=== PATIENT | male | born 1935 | race Caucasian/White ===

== ENCOUNTER 2019-09-11 16:20 | Emergency (ER) | payer OTHER ==
[~2019-09-11] VITALS: Ht 182.9 cm; Wt 93.9 kg
[2019-09-11] MEDS ORDERED: COZAAR 25 MG TA25 M2 PO (16:31)
[2019-09-11] MEDS ORDERED: LORCET 5-325 M1 EACH PO (16:31)
[2019-09-11] MEDS ORDERED: FLOMAX0.4 MG PO (16:32)
[2019-09-11] MEDS ORDERED: LANOXIN125 MCG PO (16:33)
[2019-09-11] MEDS ORDERED: LIPITOR 10 MG10 M1 PO (16:33)
[2019-09-11] MEDS ORDERED: JANTOVEN1 MG PO (16:33)
[2019-09-11] MEDS ORDERED: TYLENOL PM EX-1 EACH PO (16:34)
[2019-09-11] MEDS ORDERED: AMITRIPTYLINE H25 M3 PO (16:34)
[2019-09-11] MEDS ORDERED: PROSCAR 5MG TABL5 MG PO (16:34)
[2019-09-11 17:07] LABS: HEMATOCRIT 47.3 % (42.0-52.0); HEMOGLOBIN 15.6 gm/dL (14.0-18.0); MCH 31.5 pg (26.0-34.0); MCHC 33.1 g/dL (28.0-37.0); MCV 95.1 fL (80.0-100.0); NUCLEATED RBCS 0 /100WBC; PLATELET COUNT* 221 thou/uL (150-400); RBC 4.97 mil/uL (4.50-6.00); RDW-CV 14.6 % (10.5-14.5); WBC 10.5 thou/uL (4.0-11.0)
[2019-09-11 17:11] LABS: CALCIUM 9.5 mg/dL (8.5-10.1); CREATININE 1.4 mg/dL (0.6-1.3); POTASSIUM 4.2 mmol/L (3.5-5.1)
[2019-09-11 17:13] LABS: INR 1.6; PROTIME 16.4 Seconds (9.20-11.50)
[2019-09-11 17:16] LABS: ALBUMIN 3.9 g/dL (3.4-5.0); TOTAL BILIRUBIN 0.5 mg/dL (<0.1-1.0); TOTAL PROTEIN 6.9 g/dL (6.4-8.2)
[2019-09-11 18:04] LABS: ABSOLUTE BASOPHILS 0.1 thou/uL (0.0-0.2); ABSOLUTE LYMPHOCYTES 0.6 thou/uL (0.8-5.3); ABSOLUTE MONOCYTES 0.4 thou/uL (0.0-1.2); ABSOLUTE NEUTROPHILS 9.3 thou/uL (1.6-8.1); PLATELET ESTIMATE ADEQUATE
[2019-09-11] MEDS ORDERED: CENTANY30 GM TOP (19:36)
[2019-09-11 19:52] VITALS: BP 125/81
== END 2019-09-11 19:52 | disposition home or self-care (01) ==
LOC: M.ERS 16:20
PROVIDERS: Nurse Practitioner Family
DX: S01.21XA Laceration without foreign body of nose, initial encounter (principal); S80.01XA Contusion of right knee, initial encounter; S80.02XA Contusion of left knee, initial encounter; M25.552 Pain in left hip; M79.602 Pain in left arm; S09.8XXA Other specified injuries of head, initial encounter; I10 Essential (primary) hypertension; I48.91 Unspecified atrial fibrillation; W01.0XXA Fall on same level from slipping, tripping and stumbling without subsequent striking against object, initial encounter; Y93.89 Activity, other specified; Y92.89 Other specified places as the place of occurrence of the external cause; Y99.8 Other external cause status

== ENCOUNTER 2019-10-30 16:52 | Inpatient (IN) | payer OTHER ==
[~2019-10-30] VITALS: Ht 182.9 cm; Wt 94.0 kg
[~2019-10-30 16:52] MED LIST: AMITRIPTYLINE H25 M3 PO; CENTANY30 GM TOP; COZAAR 25 MG TA25 M2 PO; FLOMAX0.4 MG PO; JANTOVEN1 MG PO; LANOXIN125 MCG PO; LIPITOR 10 MG10 M1 PO; LORCET 5-325 M1 EACH PO; PROSCAR 5MG TABL5 MG PO; TYLENOL PM EX-1 EACH PO
[2019-10-30 16:53] VITALS: BP 128/83
[2019-10-30] MEDS ORDERED: RAYOS5 MG PO (17:07)
[2019-10-30] MEDS ORDERED: NEURONTIN100 MG PO (17:07)
[2019-10-30] MEDS ORDERED: VITAMIN D400 UNIT PO (17:08)
[2019-10-30 17:33] LABS: HEMATOCRIT 42.4 % (42.0-52.0); MCH 30.8 pg (26.0-34.0); MCV 93.3 fL (80.0-100.0); MPV 7.6 fl. (7.2-11.1); NUCLEATED RBCS 0 /100WBC; PLATELET COUNT* 207 thou/uL (150-400); RBC 4.54 mil/uL (4.50-6.00); WBC 12.8 thou/uL (4.0-11.0)
[2019-10-30 17:41] LABS: URINE BILIRUBIN NEGATIVE (Negative); URINE BLOOD 2+ (Negative); URINE CLARITY CLEAR; URINE COLOR YELLOW; URINE GLUCOSE-RANDOM NEGATIVE (Negative); URINE KETONES NEGATIVE (Negative); URINE LEUKOCYTES-REFLEX NEGATIVE (Negative); URINE NITRITE-REFLEX NEGATIVE (Negative); URINE PROTEIN NEGATIVE (Negative)
[2019-10-30 17:44] LABS: INFLUENZA A ANTIGEN Positive (Negative); INFLUENZA B ANTIGEN Negative (Negative)
[2019-10-30 17:44] LABS: CALCIUM 8.6 mg/dL (8.5-10.1); CREATININE 1.2 mg/dL (0.6-1.3); POTASSIUM 3.6 mmol/L (3.5-5.1)
[2019-10-30 17:49] LABS: BACTERIA-REFLEX None Seen /HPF (None Seen); CASTS None Seen /LPF (None Seen); CRYSTALS None Seen /LPF (None Seen); MUCUS None Seen strn/LPF (None Seen); SQUAMOUS NONE SEEN /LPF (0-3); URINE RBC 3-10 Few /HPF (0-2); URINE WBC-REFLEX None Seen /HPF (0-5)
[2019-10-30 17:58] LABS: ALBUMIN 3.5 g/dL (3.4-5.0); CK-MB MASS 0.5 ng/mL (<0.5-3.6); TOTAL BILIRUBIN 0.5 mg/dL (<0.1-1.0); TOTAL PROTEIN 6.7 g/dL (6.4-8.2)
[2019-10-30 18:01] LABS: APTT 39.5 Seconds (25.0-31.3); INR 2.7; PROTIME 26.4 Seconds (9.20-11.50)
[2019-10-30 18:03] LABS: ABSOLUTE LYMPHOCYTES 0.5 thou/uL (0.8-5.3); ABSOLUTE MONOCYTES 0.5 thou/uL (0.0-1.2); ABSOLUTE NEUTROPHILS 11.8 thou/uL (1.6-8.1)
[2019-10-30 18:04] LABS: PLATELET ESTIMATE ADEQUATE
[2019-10-30 20:15] VITALS: BP 147/82
[2019-10-30 22:00] VITALS: BP 132/62
[2019-10-31] VITALS (8 sets, daily range): BP systolic 121–167; BP diastolic 51–81
[2019-10-31 05:48] LABS: ABSOLUTE BASOPHILS 0.1 thou/uL (0.0-0.2); ABSOLUTE EOSINOPHILS 0.1 thou/uL (0.0-0.7); ABSOLUTE LYMPHOCYTES 1.4 thou/uL (0.8-5.3); ABSOLUTE MONOCYTES 1.5 thou/uL (0.0-1.2); ABSOLUTE NEUTROPHILS 8.4 thou/uL (1.6-8.1); BASOPHILS 0.5 %; EOSINOPHILS 0.7 %; HEMOGLOBIN 12.9 gm/dL (14.0-18.0); LYMPHOCYTES 12.1 %; MCH 30.8 pg (26.0-34.0); MCV 93.5 fL (80.0-100.0); MONOCYTES 13.1 %; MPV 7.6 fl. (7.2-11.1); NUCLEATED RBCS 0 /100WBC; PLATELET COUNT* 199 thou/uL (150-400); POLYS 73.6 %; RBC 4.17 mil/uL (4.50-6.00); RDW-CV 13.8 % (10.5-14.5); WBC 11.4 thou/uL (4.0-11.0)
[2019-10-31 06:00] LABS: CALCIUM 8.2 mg/dL (8.5-10.1); POTASSIUM 3.7 mmol/L (3.5-5.1); TOTAL BILIRUBIN 0.7 mg/dL (<0.1-1.0)
[2019-10-31 07:01] LABS: PROTIME 20.4 Seconds (9.20-11.50)
[2019-11-01 00:41] VITALS: BP 138/67
[2019-11-01 04:00] VITALS: BP 136/82
[2019-11-01 04:59] LABS: HEMATOCRIT 38.9 % (42.0-52.0); MCH 31.1 pg (26.0-34.0); MCHC 33.6 g/dL (28.0-37.0); MCV 92.7 fL (80.0-100.0); MPV 7.6 fl. (7.2-11.1); RBC 4.19 mil/uL (4.50-6.00); RDW-CV 14.2 % (10.5-14.5)
[2019-11-01 05:06] LABS: INR 1.5; PROTIME 15.1 Seconds (9.20-11.50)
[2019-11-01 08:00] VITALS: BP 160/70
[2019-11-01 12:16] VITALS: BP 122/69
--- NOTE | 2019-11-01 13:44 | NUR ---
[facility]KING [facility] [employer]
[2019-11-01 16:38] VITALS: BP 154/81
[2019-11-01 19:30] VITALS: BP 133/58
[2019-11-02] VITALS: BP 128/59
[2019-11-02 04:00] VITALS: BP 139/88
[2019-11-02 04:48] LABS: INR 1.7; PROTIME 17.4 Seconds (9.20-11.50)
--- NOTE | 2019-11-02 05:16 | NUR ---
PT SLEPT MOST OF SHIFT. ASSESSMENT DOCUMENTED. MEDS GIVEN PER E-MAR. IV PATENT. PAIN MEDS GIVEN PER E-MAR WITH RELIEF. PT INCONTINENT THROUGH SHIFT. FALL PRECAUTIONS IN PLACE. WILL CONTINUE WITH PLAN OF CARE.
[2019-11-02 08:00] VITALS: BP 142/77
--- NOTE | 2019-11-02 08:29 | EKG ---
[place] [address] ELECTROCARDIOGRAM REPORT Name: BRISA SALES Room: [address] ADM IN .R.#: [id number] Admission: 10/30/19 Attend Phys: Oliver Hoffman Discharge: Date of : 31 Report #: [id number] THIS REPORT FOR: //name// [facility] ED Test Date: 2019-10-30 Test Time: 16:59:43 Pat Name: BRISA SALES Department: Room: [facility] Gender: M Auto Damage Adjuster: : 1935 Requested By: Irineo Crowder Order Number: [id number] MD: Kenny Benjamin Measurements Intervals [place] Rate: 110 P: [place]: QRS: 50 QRSD: 89 T: 266 QT: 337 QTc: 456 Interpretive Statements Atrial fibrillation Repol abnrm, severe global ischemia (LM/MVD) No previous ECG available for comparison Electronically Signed On 11-02-2019 8:29:00 [facility] by Kenny Benjamin [email or web address] <ELECTRONICALLY SIGNED> By: Kenny Benjamin MD, [facility] 11/02/19 0829 [id number] Kenny Benjamin MD, FACC /EPI
[2019-11-02 11:46] VITALS: BP 126/56
--- NOTE | 2019-11-02 14:21 | NUR ---
Pt is A&O. Resides at home with his . Normally independent. Pt has a walker, but states that he doesn't normally use it. Pt and share household responsbilities. Hx of HH. No hx of SNF. Goal is home at dc. Per , Pt will need HH at [place]. Following.
[2019-11-02 16:43] VITALS: BP 132/81
[2019-11-02 20:30] VITALS: BP 158/86
[2019-11-03] VITALS: BP 127/73
[2019-11-03 04:09] VITALS: BP 125/92
--- NOTE | 2019-11-03 04:38 | NUR ---
PT SLEPT ON AND OFF THIS SHIFT. ASSESSMENT DOCUMENTED. MEDS GIVEN PER E-MAR. NEW IV STARTED THIS SHIFT. PAIN MEDS GIVEN PER E-MAR WITH RELIEF. FALL PRECAUTIONS IN PLACE. WILL CONTINUE WITH PLAN OF CARE.
[2019-11-03 04:48] LABS: PROTIME 29.9 Seconds (9.20-11.50)
--- NOTE | 2019-11-03 07:20 | NUR ---
CHANGE OF SHIFT BEDSIDE REPORT GIVEN PATIENT SEEN AT BEDSIDE, IN BED ASLEEP ASSUMMED PATIENT CARE BED ALARM SET
[2019-11-03 08:00] VITALS: BP 160/76
[2019-11-03 11:34] VITALS: BP 158/72
[2019-11-03 14:00] VITALS: BP 152/72
--- NOTE | 2019-11-03 14:24 | NUR ---
Spoke with , anticipate that Pt will be ready to dc to home tomorrow with HH. Faxed initial referral to [facility] , orders will need to be faxed tomorrow to [phone]
[2019-11-03 20:00] VITALS: BP 152/72
[2019-11-04] VITALS: BP 120/85
[2019-11-04 03:32] LABS: PROTIME 47.5 Seconds (9.20-11.50)
[2019-11-04 04:00] VITALS: BP 128/77
[2019-11-04 04:20] LABS: INR 4.9
[2019-11-04 05:56] LABS: ABSOLUTE EOSINOPHILS 0.1 thou/uL (0.0-0.7); ABSOLUTE LYMPHOCYTES 2.1 thou/uL (0.8-5.3); ABSOLUTE MONOCYTES 1.2 thou/uL (0.0-1.2); ABSOLUTE NEUTROPHILS 3.8 thou/uL (1.6-8.1); BASOPHILS 0.6 %; EOSINOPHILS 1.8 %; HEMATOCRIT 39.1 % (42.0-52.0); LYMPHOCYTES 28.9 %; MCH 30.7 pg (26.0-34.0); MCHC 33.4 g/dL (28.0-37.0); MCV 91.9 fL (80.0-100.0); MONOCYTES 16.1 %; MPV 7.8 fl. (7.2-11.1); NUCLEATED RBCS 0 /100WBC; PLATELET COUNT* 262 thou/uL (150-400); POLYS 52.6 %; RBC 4.25 mil/uL (4.50-6.00); RDW-CV 13.7 % (10.5-14.5); WBC 7.2 thou/uL (4.0-11.0)
[2019-11-04 06:02] LABS: CALCIUM 8.3 mg/dL (8.5-10.1); POTASSIUM 3.1 mmol/L (3.5-5.1)
--- NOTE | 2019-11-04 06:41 | NUR ---
ASSUMED CARE OF PT AFTER REPORT AT 1930. PT A&OX2. FORGETFUL AND IMPULSIVE. VSS. PHYSICAL ASSESSMENT COMPLETED AND CHARTED. PT ON RA. PT TRACING AFIB ON TELE. HR TO 130'S WHEN UP. PT UPSTANDBY TO RESTROOM WITH WALKER. PT DENIES ANY PAIN OR DISCOMFORT. MAINTAINED ON ISOLATION PRECAUTION FOR FLU. PT HAS A CRITICAL INR- PROVIDER MADE AWARE. PT ABLE TO SLEEP WELL ON BED. FALL PRECUATIONS IN PLACE.
[2019-11-04 08:00] VITALS: BP 135/55
[2019-11-04 11:15] VITALS: BP 171/83
[2019-11-04] MEDS ORDERED: LEVAQUIN 750 M750 MG PO (13:04)
[2019-11-04] MEDS ORDERED: LASIX 40 MG TAB40 MG PO (13:04)
[2019-11-04 14:54] VITALS: BP 171/83
[2019-11-04 15:09] VITALS: BP 171/83
== END 2019-11-04 15:50 | disposition home health service (06) | DRG 871 ==
LOC: M.ERS 16:52 → M.2W 18:14 → M.TBA-ER 18:14 → M.2W 20:23
PROVIDERS: Family Medicine; ADMIT Family Medicine
DX: A41.9 Sepsis, unspecified organism (principal); J10.08 Influenza due to other identified influenza virus with other specified pneumonia; J15.9 Unspecified bacterial pneumonia; I48.20 Chronic atrial fibrillation, unspecified; D68.59 Other primary thrombophilia; I24.8 Other forms of acute ischemic heart disease; R65.20 Severe sepsis without septic shock; E78.5 Hyperlipidemia, unspecified; N40.0 Benign prostatic hyperplasia without lower urinary tract symptoms; Z96.643 Presence of artificial hip joint, bilateral; I10 Essential (primary) hypertension; Z79.899 Other long term (current) drug therapy; Z79.01 Long term (current) use of anticoagulants; Z91.81 History of falling; Z28.21 Immunization not carried out because of patient refusal

== ENCOUNTER → 2020-04-28 | Outpatient (CLI) | payer MEDICARE ==
[~2020-04-28] MED LIST changes: +LASIX 40 MG TAB40 MG PO; +LEVAQUIN 750 M750 MG PO; +NEURONTIN100 MG PO; +NORCO 5-325 TA1 EAC1 PO; +RAYOS5 MG PO; +VITAMIN D400 UNIT PO
--- NOTE | 2020-05-12 15:40 | PAINCON ---
[address] [address] PAIN MANAGEMENT CONSULTATION Name: MÓNICABRISA Valeri Room: [facility]#: [id number] Admission: 04/28/20 Attend Phys: Marti Saba MD Discharge: Date of : 33 Report #: [id number] THIS REPORT FOR: //name// cc: Gerardo Martinez MD, Tuongvan T. MD ~ THIS REPORT FOR: //name// CC: Marti Martinez MD DATE OF SERVICE: 04/28/2020 CHIEF COMPLAINT: Low back and left hip pain. HISTORY: The patient is an 85-year-old gentleman who has been referred to the pain clinic for evaluation of pain involving his left foot, left ankle, and left hip. He states that he does note some numbness in his feet. He was seen by an orthopedic doctor in regards to his hip pain. The orthopedic surgeon did not feel that the pain was from the hip. He states that it was most likely coming from his back. He has experienced some electrical shooting pains. He feels that on the left side, there is a buzzing sensation and discomfort in his big toe. He complains of some difficulty lifting his left leg when walking. Describes that the pain sometimes goes down the back of his hip and even down into his lower leg and foot. He rates his pain as a 9/10 today. ALLERGIES: No known drug allergies. CURRENT MEDICATIONS: Lipitor 10 mg, Proscar 5 mg, Neurontin 300 mg, hydrocodone 5/325 one p.o. b.i.d., Cozaar 25 mg, prednisone 5 mg b.i.d., Flomax 0.4 mg, and warfarin 1 mg Saturday, Saturday, , and Saturday. PAST MEDICAL HISTORY: Bilateral hip replacements, cochlear ear implant, hypertension, and atrial fibrillation. PAST SURGICAL HISTORY: Bilateral hip replacements in 1994 and cochlear ear implant in 2019. SOCIAL HISTORY: Retired 15 years ago. REVIEW OF SYSTEMS: Generally good health, fatigue, wears glasses, blurred vision, hearing loss, heart trouble, swelling of feet and ankles, painful bowel movements, abdominal pain, frequent urination, joint pain, joint stiffness or swelling, weakness of muscles or joints, muscle pain, cramping, back pain, difficulty walking, lightheadedness, dizziness, and numbness [place] [address] PAIN MANAGEMENT CONSULTATION Name: BRISA SALES Valeri Room: [facility]#: [id number] Admission: 04/28/20 Attend Phys: Marti Saba MD Discharge: Date of : 33 Report #: [id number] LABORATORY DATA: CT of the cervical spine on 09/11/2019. Impression, degenerative disk disease without acute fracture or subluxation. Reason neck pain after a fall. PAIN CLINIC ASSESSMENT/PQRS: 1. 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 He is not being treated for rheumatoid arthritis. 2. Height 6 feet 0, weight 190 pounds. 3. Vital signs: Blood pressure 125/66, heart rate 102, respiratory rate 16, room air saturation 97%. 4. Pain intensity is 9/10. 5. Fall history: The patient has not fallen in the last month. 6. Blood thinner. The patient has used a warfarin medication, Saturday, Saturday, , and Fridays 1 mg. 7. History of hypertension. The patient is being treated for hypertension. 8. Opioids greater than 6 weeks. The patient is receiving medication from his primary. 9. Risk assessment tool, low for opioid use. 10. Functional assessment tool reviewed. 11. Recreational drug use. The patient denies. 12. Tobacco: The patient does not smoke. 13. Alcohol. The patient denies frequent use of alcoholic beverages. PHYSICAL EXAMINATION: GENERAL: The patient is a well-developed, well-nourished white male. Appears his stated age of 85 years. The patient is alert and oriented x 3. Affect is appropriate. Speech is appropriate. HEENT: Normocephalic, atraumatic. Extraocular eye muscles intact. Sclerae nonicteric. Mucous membranes moist. HEART: Heart rate regular. RESPIRATORY: No shortness of breath, no cough. GASTROINTESTINAL: Unremarkable. MUSCULOSKELETAL: Upper extremity muscle strength judged to be 5-/5 for the major muscle groups in the upper extremity. Lower extremity, the patient has some pain and discomfort in his left hip. Has complained of pain that radiates down the hip into the left foot and does complain of some discomfort in his great toe. Muscle strength judged to be 4+ in the muscles in the lower extremity. He feels that there is some decreased sensation to light touch over the dorsum of his left foot. Gait is somewhat antalgic and unsteady using a cane. IMPRESSION: 1. Lumbar radiculopathy, low back area and the L4-L5 dermatomal distribution. 2. Bilateral hip replacements. 3. [place] [address] PAIN MANAGEMENT CONSULTATION Name: BRISA SALES Room: [facility] Dameon#: [id number] Admission: 04/28/20 Attend Phys: Marti Saba MD Discharge: Date of : 33 Report #: [id number] 4. Hypertension. 5. Atrial fibrillation. RECOMMENDATIONS: The patient is having pain in the back and down into his leg. We will proceed with an epidural steroid injection. The risks and benefits were discussed. The patient is taking warfarin type medication. He took his last dose one night prior to seeing us. He will stop taking the warfarin medication. He will return to the Pain Clinic, at which time we will consider an epidural steroid injection in the L4-L5 dermatomal distribution to see if it can help decrease some of the pain and discomfort he is experiencing. He will return to the Pain Clinic, at which time we will consider an injection. We would like to thank you for letting us participate in his care. We hope he continues to improve. <ELECTRONICALLY SIGNED> By: Marti Saba MD 05/12/20 1540 1422 [id number]. Richie Saba MD /[facility]
== END ==
LOC: M.PC 11:30
PROVIDERS: ATTEND Anesthesiology Pain Medicine
DX: M54.16 Radiculopathy, lumbar region (principal); M25.552 Pain in left hip; Z96.643 Presence of artificial hip joint, bilateral; Z96.21 Cochlear implant status; Z79.899 Other long term (current) drug therapy

== ENCOUNTER → 2020-05-05 | Outpatient (CLI) | payer MEDICARE | LOC: M.PC 02:28 | DX: M54.16 Radiculopathy, lumbar region (principal); M54.5 Low back pain; I48.91 Unspecified atrial fibrillation; I10 Essential (primary) hypertension; Z96.21 Cochlear implant status; Z98.890 Other specified postprocedural states ==

== ENCOUNTER → 2020-05-12 | Outpatient (CLI) | payer MEDICARE ==
--- NOTE | 2020-05-25 08:36 | PAINCON ---
[address] [address] PAIN MANAGEMENT CONSULTATION Name: BRISA SALES Valeri Room: [facility]#: [id number] Admission: 05/12/20 Attend Phys: Marti Saba MD Discharge: Date of : 33 Report #: [id number] THIS REPORT FOR: //name// cc: Gerardo Martinez MD, Tuongvan T. MD ~ THIS REPORT FOR: //name// CC: Marti Martinez DATE OF SERVICE: 05/12/2020 CHIEF COMPLAINT: Low back pain down to the left leg. HISTORY: The patient is an 85-year-old gentleman who has been seen in the Pain Clinic and returned today with complaints of pain and discomfort involving his low back, left leg, hip, foot and left great toe. He has had bilateral leg numbness. He has had bilateral knee pain. He has some medications helpful. He does note some weakness in his legs. Need some assistance to lift his left leg. She has some difficulty walking secondary to pain. He has been using hydrocodone and gabapentin. He has stopped taking his warfarin with the desire to undergo an epidural steroid injection today. ALLERGIES: No known drug allergies. CURRENT MEDICATIONS: Lipitor 10 mg, Proscar 5 mg, Neurontin 300 mg, hydrocodone 5/325 one p.o. b.i.d., Cozaar 25 mg, prednisone 5 mg b.i.d., Flomax 0.4 mg, and Coumadin 1 mg Saturday, Saturday and Saturday, has been stopped. PAIN CLINIC ASSESSMENT AND PQRS: 1. The patient has some osteoarthritic changes in his hip and has had bilateral hip replacement. He is not being treated for rheumatoid arthritis. 2. Height 6 feet 0 inches, weight 198 pounds, and BMI is 27.0. 3. Vital signs: Blood pressure 127/75, heart rate 102, respiratory rate 13, room air saturation 98%, and temperature 98.3. 4. Pain intensity 3-10 depending on activity. 5. Fall history: The patient has not fallen in the last 3 months. 6. Blood thinner. The patient has stopped taking his medication of warfarin. 7. Hypertension. The patient is being treated for hypertension. 8. Opioids greater than 6 weeks. The patient received medication from one source, his primary physician. 9. Functional assessment tool reviewed. 10. Recreational drug use. The patient denies. 11. Tobacco: The patient denies. 12. Alcohol. The patient denies frequent use [place] [address] PAIN MANAGEMENT CONSULTATION Name: BRISA SALES Valeri Room: [facility]#: [id number] Admission: 05/12/20 Attend Phys: Marti Saba MD Discharge: Date of : 33 Report #: [id number] PHYSICAL EXAMINATION: GENERAL: The patient is a well-developed, well-nourished white male. Appears his stated age of 85 years. He is alert and oriented x 3. His affect is appropriate. Speech is fluent. HEENT: Normocephalic, atraumatic. Extraocular eye muscles intact. The patient is wearing glasses. Has a mask in place. HEART: Regular rate. RESPIRATORY: No shortness of breath or cough. GASTROINTESTINAL: Unremarkable. MUSCULOSKELETAL: Muscle strength judged to be 5-/5 for the major muscle groups in the upper extremity. Lower extremity, the patient has pain and discomfort in the left hip with pain that radiates down to the left hip, leg and down to his foot. He has some discomfort in his great toe as well. IMPRESSION: 1. L4-L5 muscle weakness. The patient has an antalgic gait. Notes some decreased sensation on the dorsum of his foot. The patient uses his hands to go from a sitting to a standing position. 2. Lumbar radiculopathy. 3. Low back area in the L4-L5 dermatomal distribution. 4. Bilateral hip replacement. 5. Cochlear ear implant. 6. Hypertension. 7. Atrial fibrillation. RECOMMENDATIONS: We discussed the risks and benefits of an epidural steroid injection with the patient. They include but are not limited to infection, worsening of pain, no improvement in pain, nerve damage, bleeding, and the patient elects to proceed. We discussed the problems with COVID-19. We explained to the patient that if injections during this time may make things a bit more problematic should he become infected. Steroids can decrease one's immunity. He elects to proceed. PROCEDURE NOTE: The patient was taken to the procedure area. He was then assisted in getting on the examination table. His back was sterilely prepped with a Betadine solution. A 0.25% bupivacaine was infiltrated at the L4-L5 interspace. There was no CSF, heme or paresthesia. Total of 80 mg Depo-Medrol, 40 mg triamcinolone and 2 mL of 0.25% bupivacaine was injected. The patient tolerated the procedure well. There were no complications. He remained in the Pain Clinic for an appropriate amount of time. He will follow up in the [place] [address] PAIN MANAGEMENT CONSULTATION Name: BRISA SALES Room: [facility]#: [id number] Admission: 05/12/20 Attend Phys: Marti Saba MD Discharge: Date of : 33 Report #: [id number] We would like to thank you for letting us participate in his care. We hope he continues to improve. <ELECTRONICALLY SIGNED> By: Marti Saba MD 05/25/20 0836 1002 1607N. Richie Saba MD /nt
== END | disposition home or self-care (01) ==
LOC: M.PC 04:26
PROVIDERS: ATTEND Anesthesiology Pain Medicine
DX: M54.16 Radiculopathy, lumbar region (principal); G89.29 Other chronic pain; I48.91 Unspecified atrial fibrillation; I10 Essential (primary) hypertension; Z98.890 Other specified postprocedural states; Z79.899 Other long term (current) drug therapy; Z96.643 Presence of artificial hip joint, bilateral; Z79.01 Long term (current) use of anticoagulants

== ENCOUNTER → 2020-07-07 | Outpatient (CLI) | payer MEDICARE ==
[~2020-07-07] MED LIST changes: +HYDROCODON-ACE1 EAC7 PO
--- NOTE | 2020-07-28 08:40 | PAINCON ---
[address] [address] PAIN MANAGEMENT CONSULTATION Name: BRISA SALES Room: [facility]#: [id number] Admission: 07/07/20 Attend Phys: Marti Saba MD Discharge: Date of : 33 Report #: [id number] THIS REPORT FOR: //name// cc: Gerardo Martinez MD, Tuongvan T. MD ~ THIS REPORT FOR: //name// CC: Marti Martinez DATE OF SERVICE: 07/07/2020 CHIEF COMPLAINT: Continued leg pain. HISTORY: The patient is an 85-year-old gentleman, who is having pain involving his legs, ankle, feet and has had some problems with pain in his head. These have been ongoing for a number of years. He notes that the pain is bilateral. He has some sensation of pins and needles sensation with numbness down into his feet. He underwent an epidural injection. He noticed some benefit, but continues to have pain, which is still quite problematic. He has been using a cane to ambulate. He has returned today for evaluation and medication. ALLERGIES: No known drug allergies. CURRENT MEDICATIONS: Lipitor 10 mg, Proscar 5 mg, Neurontin 300 mg, hydrocodone 5/325 one p.o. b.i.d., Cozaar 25 mg, prednisone 5 mg b.i.d., Flomax 0.4 mg, and Coumadin 1 mg Saturday, Saturday, Fridays. PAIN CLINIC ASSESSMENT AND PQRS: 1. The patient has some osteoarthritic changes in his hip and has had bilateral hip replacements. He is not being treated for rheumatoid arthritis. 2. Height 6 feet 0, weight 195 pounds, BMI is 25. 3. Vital signs: Blood pressure 145/83, heart rate 107, respiratory rate 18, room air saturation 96%, and temperature 98.5. 4. Pain intensity 5/10. 5. Fall history: The patient has not fallen since we saw him last. He is walking with a cane. 6. Blood thinner. The patient continues to take warfarin. 7. Hypertension. The patient is being treated for hypertension. 8. Opioids greater than 6 weeks. The patient receives medication from one source, his primary physician. 9. Functional assessment tool reviewed. 10. Recreational drug use. The patient denies. 11. Tobacco: The patient denies. 12. Alcohol. The patient denies [place] [address] PAIN MANAGEMENT CONSULTATION Name: BRISA SALES Room: [facility]#: [id number] Admission: 07/07/20 Attend Phys: Marti Saba MD Discharge: Date of : 33 Report #: [id number] PHYSICAL EXAMINATION: GENERAL: The patient is a well-developed, well-nourished white male. Appears his stated age of 85 years. He is alert and oriented x 3. His affect is appropriate. Speech is fluent. HEENT: Normocephalic, atraumatic. Extraocular eye muscles intact. Sclerae are nonicteric. The patient is wearing glasses. His face is covered with a mask. HEART: Regular. RESPIRATORY: Denies shortness of breath or cough. GASTROINTESTINAL: Unremarkable. MUSCULOSKELETAL: Muscle strength in the upper extremity 4+/5 for the major muscle groups in the upper extremity. Lower extremity, the patient has pain and discomfort in his left hip and that pain radiates down to his left leg and foot. Notes some discomfort in the area of the great toe. IMPRESSION: L4-L5 muscle weakness. The patient walks with an antalgic gait. Notes some decreased sensation in the dorsum of his foot. The patient uses hands to go from a sitting to an ambulatory condition. 1. Lumbar radiculopathy. 2. Low back pain in the area of the L4-L5 dermatomal distribution. 3. Bilateral hip replacements. 4. Cochlear ear implant. 5. Hypertension. 6. History of atrial fibrillation. RECOMMENDATIONS: We discussed treatment options with the patient. At this juncture, we will continue on a conservative approach. The patient will take gabapentin 300 mg 1 p.o. b.i.d. He will also continue with hydrocodone 5/325 one p.o. q.i.d. The patient will monitor his problems with his left leg. He will call us if he has any problems with the hydrocodone medication. The patient's medication was sent to his pharmacy. <ELECTRONICALLY SIGNED> By: Marti Saba MD 07/28/20 0840 1838 [id number]. Richie Saba MD /[facility]ron
== END ==
LOC: M.PC 11:50
PROVIDERS: ATTEND Anesthesiology Pain Medicine
DX: M79.604 Pain in right leg (principal); M79.605 Pain in left leg; M54.16 Radiculopathy, lumbar region; I10 Essential (primary) hypertension; Z86.79 Personal history of other diseases of the circulatory system; Z96.641 Presence of right artificial hip joint; Z96.642 Presence of left artificial hip joint; Z96.21 Cochlear implant status; Z79.899 Other long term (current) drug therapy

== ENCOUNTER → 2020-09-06 | Outpatient (CLI) | payer OTHER ==
--- NOTE | ~2020-09-06 | PAINCON ---
[address] [address] PAIN MANAGEMENT CONSULTATION Name: MÓNICABRISA A Room: [facility]#: [id number] Admission: 09/06/20 Attend Phys: Marti Saba MD Discharge: Date of : 33 Report #: [id number] THIS REPORT FOR: //name// cc: Gerardo Martinez MD, Tuongvan T. MD ~ CC: Marti Martinez MD DATE OF SERVICE: 09/06/2020 CHIEF COMPLAINT: Left ankle, foot and right hand pain. HISTORY: The patient is an 85-year-old gentleman who has been followed in the Pain Clinic. He has pain involving a number of areas. He is complaining of pain involving his right hand, feet, ankle and legs. He has had pain for a number of years. Does complain of pins and needle sensation in his feet. He has undergone epidural steroid injections in the past. He is using a cane to ambulate. He is having some problems with his kidneys. He has been diagnosed with a kidney stone. Notes an enlarged prostate. Has some right-sided groin pain. There is some question about a fluid collection or infection involving his right hip. Rates his pain as a 3-4 while sitting and a 7-8 while up and ambulating. ALLERGIES: No known drug allergies. CURRENT MEDICATIONS: Lipitor 10 mg, Proscar 5 mg, Neurontin 300 mg, hydrocodone 5/325 one p.o. b.i.d., Cozaar 25 mg, prednisone 5 mg b.i.d., Flomax 0.4 mg, and Coumadin 1 mg Mondays, Wednesdays, and Fridays. PAIN CLINIC ASSESSMENT/PQRS: 1. The patient has some osteoarthritic changes in his hip. He has had bilateral hip replacements. He is not being treated for rheumatoid arthritis. 2. Height 6 feet 0, weight 195 pounds, BMI is 25. 3. Vital signs: Blood pressure is 114/64, heart rate 72, respiratory rate 18, room air saturation is 96%, temperature 96.8. 4. Pain intensity, 3-4/10 while sitting and 7-8/10 while ambulating. 5. Fall history: The patient has not fallen since we saw him last. 6. Blood thinner. The patient does take warfarin. 7. Hypertension. The patient is being treated for hypertension. 8. Opioids greater than 6 weeks. The patient received medication from his primary physician. 9. Risk assessment tool, low for opioid use. 10. Recreational drug use: The patient denies. 11. Tobacco: The patient denies. 12. Alcohol. The patient denies significant use [place] [address] PAIN MANAGEMENT CONSULTATION Name: MÓNICABRISA Valeri Room: [facility]#: [id number] Admission: 09/06/20 Attend Phys: Marti Saba MD Discharge: Date of : 33 Report #: [id number] PHYSICAL EXAMINATION: GENERAL: The patient is a well-developed, well-nourished white male. Appears his stated age of 85. He is alert and oriented x 3. His affect is appropriate. Speech is fluent. HEENT: Normocephalic, atraumatic. Extraocular eye muscles intact. The patient is wearing glasses. He has a facial covering in place. HEART: Regular rate. Denies shortness of breath or cough. ABDOMEN: Denies abdominal complaint. MUSCULOSKELETAL: The patient has upper muscle strength of 4+/5 for the major muscle groups in the upper extremity. Lower extremity, the patient has pain and discomfort in his left hip and radiating pain down into his left leg and into his foot. The patient also has some discomfort in the great toe. L4-L5 muscle weakness. The patient walks with an antalgic gait. Has decreased sensation in the dorsum of his feet. Uses hands to go from a sitting to a standing position. IMPRESSION: 1. Low back pain in the L4-L5 dermatomal distribution. 2. Diagnosis of kidney stones. 3. Enlarged prostate. 4. Possible fluid infection collection in the right hip. 5. History of bilateral hip replacements. 6. Cochlear ear implant. 7. Hypertension. 8. History of atrial fibrillation. RECOMMENDATIONS: We discussed treatment options with the patient. At this juncture, there is some question as to whether or not he has an ongoing infection. We will have the patient cleared with regards to the fluid collection/infection in his hip. After this has been worked out, the patient will return to the Pain Clinic, at which time, we will consider an epidural injection. He will be followed by his urologist. We would like to thank you for letting us participate in his care. We hope he continues to improve. By: 0822 [id number]. Richie Saba MD /bayron
== END ==
LOC: M.PC 11:28
PROVIDERS: ATTEND Anesthesiology Pain Medicine
DX: M25.572 Pain in left ankle and joints of left foot (principal); M79.641 Pain in right hand

== ENCOUNTER → 2020-11-24 | Outpatient (CLI) | payer OTHER | LOC: M.PC 10:20 | PROVIDERS: ATTEND Anesthesiology Pain Medicine | DX: M54.5 Low back pain (principal); N20.0 Calculus of kidney; N40.1 Benign prostatic hyperplasia with lower urinary tract symptoms; I10 Essential (primary) hypertension; Z96.643 Presence of artificial hip joint, bilateral; Z96.21 Cochlear implant status; Z88.8 Allergy status to other drugs, medicaments and biological substances; Z79.899 Other long term (current) drug therapy ==

== ENCOUNTER → 2021-03-07 | Outpatient (CLI) | payer OTHER ==
[2021-03-07 12:27] LABS: INR 1.2; PROTIME 12.3 Seconds (9.20-11.50)
== END | disposition home or self-care (01) ==
LOC: M.PC 11:52
PROVIDERS: ATTEND Anesthesiology Pain Medicine
DX: M54.16 Radiculopathy, lumbar region (principal); G89.29 Other chronic pain; I10 Essential (primary) hypertension; I48.91 Unspecified atrial fibrillation; N40.0 Benign prostatic hyperplasia without lower urinary tract symptoms; Z98.890 Other specified postprocedural states; Z79.899 Other long term (current) drug therapy; Z96.643 Presence of artificial hip joint, bilateral; Z87.442 Personal history of urinary calculi

== ENCOUNTER 2021-05-18 14:26 | Emergency (ER) | payer OTHER ==
[~2021-05-18] VITALS: Ht 182.9 cm; Wt 88.5 kg
[2021-05-18 15:23] LABS: ABSOLUTE BASOPHILS 0.1 thou/uL (0.0-0.2); ABSOLUTE LYMPHOCYTES 0.9 thou/uL (0.8-5.3); ABSOLUTE MONOCYTES 0.4 thou/uL (0.0-1.2); ABSOLUTE NEUTROPHILS 8.1 thou/uL (1.6-8.1); BASOPHILS 0.5 %; HEMATOCRIT 42.3 % (42.0-52.0); HEMOGLOBIN 14.6 gm/dL (14.0-18.0); LYMPHOCYTES 9.4 %; MCH 33.1 pg (26.0-34.0); MCHC 34.6 g/dL (28.0-37.0); MCV 95.5 fL (80.0-100.0); MONOCYTES 4.3 %; NUCLEATED RBCS 0 /100WBC; PLATELET COUNT* 204 thou/uL (150-400); POLYS 85.8 %; RBC 4.42 mil/uL (4.50-6.00); RDW-CV 15.2 % (10.5-14.5); WBC 9.5 thou/uL (4.0-11.0)
[2021-05-18] MEDS ORDERED: PREDNISONE 10 M10 MG PO (15:35)
[2021-05-18] MEDS ORDERED: DIGOX250 MCG PO (15:36)
[2021-05-18] MEDS ORDERED: DILTIAZEM ER180 M2 PO (15:37)
[2021-05-18] MEDS ORDERED: VITAMIN D310 MC1 PO (15:38)
[2021-05-18] MEDS ORDERED: FUROSEMIDE 40 M40 MG PO (15:39)
[2021-05-18] MEDS ORDERED: FISH OIL 1,0001 EAC9 PO (15:40)
[2021-05-18] MEDS ORDERED: APAP W/CODEINE1 TA2 PO (15:41)
[2021-05-18 15:57] LABS: CALCIUM 8.7 mg/dL (8.5-10.1); CREATININE 0.9 mg/dL (0.6-1.3); POTASSIUM 4.5 mmol/L (3.5-5.1)
[2021-05-18 16:00] VITALS: BP 153/85
[2021-05-18 16:02] LABS: ALBUMIN 3.5 g/dL (3.4-5.0); TOTAL BILIRUBIN 0.7 mg/dL (<0.1-1.0); TOTAL PROTEIN 6.3 g/dL (6.4-8.2)
--- NOTE | 2021-05-18 16:09 | EKG ---
[place] [address] ELECTROCARDIOGRAM REPORT Name: BRISA SALES Room: [facility]#: [id number] Admission: 05/18/21 Attend Phys: Discharge: 05/18/21 Date of : 31 Date of Service: 05/18/21 1456 Report #: [id number] THIS REPORT FOR: //name// [facility] ED Test Date: 2021-05-18 Test Time: 14:56:22 Pat Name: BRISA SALES Department: Room: Gender: Director Of Employee Development: : 1935 Requested By: Irineo Crowder Order Number: [id number] MD: Kale Recio Measurements Intervals [place] Rate: 81 P: CO: QRS: 40 QRSD: 98 T: 170 QT: 328 QTc: 381 Interpretive Statements Atrial fibrillation Nonspecific ST segment depression, consider ischemia compared to ECG 10/30/2019 16:59:43 No significant changes Electronically Signed On 05-18-2021 16:09:42 CDT by Kale Recio [email or web address] <ELECTRONICALLY SIGNED> By: Kale Recio MD, [facility] 05/18/21 1609 1456 1456 Kale Recio MD, [facility] /EPI
== END 2021-05-18 16:00 | disposition home or self-care (01) ==
LOC: M.ERS 14:26
PROVIDERS: Family Medicine
DX: R53.1 Weakness (principal); I10 Essential (primary) hypertension; I48.91 Unspecified atrial fibrillation; Z96.643 Presence of artificial hip joint, bilateral

== ENCOUNTER → 2021-05-25 | Outpatient (CLI) | payer OTHER ==
[~2021-05-25] MED LIST changes: +APAP W/CODEINE1 TA2 PO; +DIGOX250 MCG PO; +DILTIAZEM ER180 M2 PO; +FISH OIL 1,0001 EAC9 PO; +FUROSEMIDE 40 M40 MG PO; +HYDROCODONE-AP1 EA11 PO; +PREDNISONE 10 M10 MG PO; +VITAMIN D310 MC1 PO
== END ==
LOC: M.PC 11:04
PROVIDERS: ATTEND Anesthesiology Pain Medicine
DX: M54.5 Low back pain (principal); N20.0 Calculus of kidney; N40.0 Benign prostatic hyperplasia without lower urinary tract symptoms; I10 Essential (primary) hypertension; Z86.79 Personal history of other diseases of the circulatory system; Z96.641 Presence of right artificial hip joint; Z96.642 Presence of left artificial hip joint; Z96.21 Cochlear implant status